=== PATIENT | female | born 1960 ===

== ENCOUNTER 2024-07-10 14:59 | Emergency (ER) | payer SELFPAY ==
[~2024-07-10] VITALS: Ht 160 cm; Wt 104.3 kg
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
[2024-07-10] MEDS: acetaMINOPHEN 500 MG TABLET PO ONE (15:58)
[2024-07-10 16:33] VITALS: BP 145/84; PULSE 78; RESP 18; TEMP 98.2; O2SAT 98
--- NOTE | 2024-07-10 21:42 | EKG ---
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
== END 2024-07-10 16:34 | disposition home or self-care (01) ==
LOC: EDH 14:59
DX: R07.89 Other chest pain (principal); I10 Essential (primary) hypertension; Z90.710 Acquired absence of both cervix and uterus; V89.2XXA Person injured in unspecified motor-vehicle accident, traffic, initial encounter; Y93.89 Activity, other specified; Y92.488 Other paved roadways as the place of occurrence of the external cause; Y99.8 Other external cause status
CPT/HCPCS: 71045; 93005; 99283